=== PATIENT | female | born 1975 | race Caucasian/White ===

== ENCOUNTER → 2018-04-09 | Outpatient (REF) ==
[~2018-04-09] MED LIST: AMOXICILLIN500 MG PO; AMOXICILLIN875 MG OR; DEPO-PROVER150 MG/ML IM; DIFLUCAN150 MG PO; PENICILLN VK500 MG PO
[2018-04-09 10:13] LABS: CHOLESTEROL HDL RATIO 3.1 (<4.4 (CALC))
== END | disposition home or self-care (01) | DRG 951 ==
LOC: LAB 08:11
PROVIDERS: ATTEND Family Medicine
DX: Z02.6 Encounter for examination for insurance purposes (principal)